=== PATIENT | female | born 1985 | race Caucasian/White ===

== ENCOUNTER 2018-09-19 11:28 | Emergency (ER) | payer OTHER ==
[2018-09-19] MEDS: AMOXICILLIN 500 MG CAP PO (12:39)
[2018-09-19] MEDS: ACETAMINOPHEN 500 MG TAB PO (12:39)
== END 2018-09-19 12:43 | disposition home or self-care (01) ==
LOC: FTE 11:28
DX: O99.611 Diseases of the digestive system complicating pregnancy, first trimester (principal); K08.89 Other specified disorders of teeth and supporting structures; Z3A.00 Weeks of gestation of pregnancy not specified
CPT/HCPCS: 99283; Z7502